=== PATIENT | male | born 1985 | race Caucasian/White ===

== ENCOUNTER 2021-05-04 09:00 | Outpatient (CLI) | payer SELFPAY ==
[2021-05-04 22:35] LABS: COVID-19 RT-PCR UVMMC Result Negative (Negative)
== END 2021-05-04 09:01 | disposition home or self-care (01) ==
LOC: LBO 09:01
PROVIDERS: Visit Provider Nurse Practitioner Family
DX: Z20.822 Contact with and (suspected) exposure to COVID-19 (principal)
CPT/HCPCS: U0003